=== PATIENT | female | born 1995 | race Two or more races ===

== ENCOUNTER 2016-08-09 15:45 | Observation (INO) | payer MEDICAID | END 2016-08-09 16:55 | disposition home or self-care (01) | DRG 566 | LOC: LDRP 15:45 | PROVIDERS: ADMIT Obstetrics & Gynecology; ATTEND Obstetrics & Gynecology | DX: O26.893 Other specified pregnancy related conditions, third trimester (principal); R10.30 Lower abdominal pain, unspecified; Z3A.38 38 weeks gestation of pregnancy | CPT/HCPCS: 59025; 81002; G0378 ==

== ENCOUNTER 2016-08-11 07:15 | Observation (INO) | payer OTHER ==
[2016-08-11 08:10] LABS: Urine Bilirubin Negative (Negative); Urine Color Yellow (Yellow); Urine Glucose Normal (Normal); Urine Ketone Negative (Negative); Urine Nitrite Negative (Negative); Urine RBC 8 /hpf (0 - 4); Urine Squamous Epithelial Cell FEW /hpf (<5); Urine Urobilinogen Normal (Negative); Urine pH 5.5 (5.0-8.0)
[2016-08-11 08:27] LABS: Urine Blood 1+ /uL (Negative)
== END 2016-08-11 09:10 | disposition home or self-care (01) | DRG 566 ==
LOC: LDRP 07:15
PROVIDERS: ADMIT Specialist; ATTEND Specialist
DX: O26.893 Other specified pregnancy related conditions, third trimester (principal); R10.9 Unspecified abdominal pain; Z3A.38 38 weeks gestation of pregnancy
CPT/HCPCS: 59025; 76818; 81001; 81002; G0378